=== PATIENT | male | born 1975 | race Caucasian/White ===

== ENCOUNTER 2022-04-09 19:02 | Emergency (ER) | payer SELFPAY ==
[2022-04-09 19:11] VITALS: BP 153/107; PULSE 82; RESP 16; TEMP 36.8; O2SAT 96
--- NOTE | 2022-04-09 19:28 | ED.GENADUL_ITS ---
Discharge Plan Disposition Patient Disposition: HOME Condition: Stable Discharge Details Clinical Impression: Dental infection Primary Care Provider: None,None ED Provider: Jonathan Rodriguez Home Meds and New Rx's Prescriptions: New amoxicillin-pot clavulanate 875-125 mg tablet 1 tab PO BID Qty: 14 0RF Discharge Instructions Instructions: Dental Abscess (ED) Additional Instructions: follow up as soon as you can with a dentist you can take 1000mg tylenol and 600mg ibuprofen every 6 hours as needed. Do not exceed 3000mg in a 24 hour period of tylenol if you feel more ill, have severe worsening pain or difficulty swallowing liquids return to the emergency department Medical Decision Making 46 yo male who denies chronic medical problems comes in with chief complaint of dental pain. He states he started to have some pain 6 days ago in the left lower mid molar and subsequently started to have swelling in the gum line around it so came here. Denies fevers, chills, difficulty swallowing or dyspnea. He arrives stable and appears well speaking clearly and swallowing normally. He has numerous dental caries on exam with small periapical abscess at the mid left lower molar gum line and some swelling. Normal posterior pharynx, midline uvuvla, no submandibular swelling or restricted neck movements. HE gave verbal consent and using an 18G needle I incised the abscess and had small amount of pus drain out. He tolerated well no complications. He has no findings on exam to suggest ludwigs or other serious entities such as retropharyngeal hemoatoma, epiglotitis or peritonsilar abscess. Will place on augmentin and have him f/u with dentist, return precautions given Differential Diagnosis Differential Diagnosis: dental abscess, pulpitis, caries HPI General Mode of arrival: ambulatory . Date/Time Provider Initiated Documentation: 04/09/22 19:09 . Limitations to Documentation: no limitations . Information obtained by: patient . History of Present Illness 46 year old M presents to the emergency department with the chief complaint of dental pain, described as moderate, Quality is described as aching, and is localized to the mouth. Patient started experiencing this day(s) (6) and it has been constant. No relieving factors improve symptom(s), No exacerbating factors reported . Patient notes denies fever/chills. Patient did receive the following treatments prior to arrival, NSAID Related Data Home Medications Medication Instructions Recorded Confirmed amoxicillin 875 mg-potassium 1 tab PO BID #14 tabs 04/09/22 clavulanate 125 mg tablet Previous Rx's Medication Instructions Recorded amoxicillin 875 mg-potassium 1 tab PO BID #14 tabs 04/09/22 clavulanate 125 mg tablet Allergies Allergy/AdvReac Type Severity Reaction Status Date / Time No Known Allergies Allergy Unverified 04/09/22 19:16 General Stated Complaint: DentalOral CHET: 4 Review of Systems All systems reviewed & are unremarkable except as noted in HPI and below Constitutional Constitutional: Denies chills, Denies fever(s) and Denies weakness ENT Ears, Nose, Mouth, and Throat: Denies change in voice Cardiovascular Cardiovascular: Denies chest pain and Denies dyspnea Respiratory Respiratory: Denies dyspnea Gastrointestinal Gastrointestinal: Denies abdominal pain and Denies vomiting Integumentary/Breasts Skin/Breast: Denies rash Neurologic Neurologic: Denies weakness PFSH All Active Problems (Updated 04/09/22 @ 19:30 by Jonathan Rodriguez MD) Dental infection (Acute) Social History Smoking/Tobacco Use Status: Former Tobacco Use Smoking risk assessment performed?: Yes Alcohol Intake: never Drug use: Never Exam Const General: no acute distress Orientation: alert HENMT Head: normal to inspection Ears: external ears normal General nose exam: external nose normal Mouth: moist mucous membranes Eyes General: appearance normal, both eyes and all related structures Neck Neck: normal visual inspection Resp Effort & Inspection: normal respiratory effort and able to speak in complete sentences Cardio Rate: regular rate Skin General skin exam: no rashes or lesions noted Neuro General: patient alert and patient oriented x3 Extrem General: normal to inspection Psych Mental Status: mental status grossly normal Course Vital Signs Vital signs: Vital Signs Temperature 36.8 C 04/09/22 19:11 Pulse 82 04/09/22 19:11 Respiratory Rate 16 04/09/22 19:11 Blood Pressure 153/107 H 04/09/22 19:11 Pulse Oximetry 96 04/09/22 19:11 Temperature 36.8 C 04/09/22 19:11 Temperature Source Skin 04/09/22 19:11 Pulse 82 04/09/22 19:11 Respiratory Rate 16 04/09/22 19:11 Respiratory Effort Non-Labored 04/09/22 19:17 Blood Pressure 153/107 H 04/09/22 19:11 Pulse Oximetry 96 04/09/22 19:11 Oxygen Delivery Method Room Air 04/09/22 19:11 Oxygen Flow Rate 0 04/09/22 19:11 Pain Level 6 04/09/22 19:11
[2022-04-09] MEDS: Lidocaine 1% Multi-Dose 20 ML VIAL (19:29)
[2022-04-09] MEDS: Amoxicillin 875/Clav. 125 TAB PO (19:36)
== END 2022-04-09 19:37 | disposition home or self-care (01) ==
PROVIDERS: Emergency Provider Emergency Medicine
DX: K04.7 Periapical abscess without sinus (principal); K02.9 Dental caries, unspecified; Z87.891 Personal history of nicotine dependence
CPT/HCPCS: 41800; 99283; 99284; J3490